=== PATIENT | male | born 1995 | race Hispanic/Latino ===

== ENCOUNTER 2021-01-05 21:19 | Emergency (ER) | payer OTHER ==
[2021-01-05 21:25] VITALS: BP 149/84
[2021-01-05] MEDS ORDERED: TETANUS,DIPH,PERTUSS(ACELL) VACCINE 0.5 ML SYRINGE IM ONE (21:29)
[2021-01-05] MEDS ORDERED: IBUPROFEN 600 MG TAB PO ONE (21:29)
[2021-01-05] MEDS ORDERED: LIDOCAINE-MPF (1%) 10 MG/1 ML VIAL 5 ML INFILTRATI ONE (21:29)
--- NOTE | 2021-01-06 00:08 | Emergency Department Report ---
ED Lower Extremity HPI - General Chief Complaint: Wound/Laceration Stated Complaint: CUT ON LEG Source: patient Mode of arrival: Ambulatory Limitations: No Limitations - History of Present Illness Initial Comments: Patient is a 25-year-old white male with no past medical history and is not up-to-date with his tetanus vaccinations presents to the ED with complaint of painful bleeding left lateral knee laceration wound after a chainsaw accidentally cut his left lateral knee about 4 hours ago while he was cutting trees. Patient states that he withdrew and turned off the chain so when he noticed that he had been cut. Patient states that the bleeding is well controlled at this time. Patient denies numbness and tingling or weakness of left leg, fall, nausea and vomiting, dizziness, syncope or hip pain. Patient states that his able to walk with no difficulty although the bleeding went on for a while. MD Complaint: knee injury (left lateral knee laceration) -: Sudden, hour(s) (4) Injury: Knee: Left (left lateral knee laceration) Type of Injury: puncture wound Place: home Severity: moderate Severity scale (0 -10): 6 Improves With: nothing Worsens With: weight bearing, movement, palpation Context: walking, other (chain-saw punctured lateral left knee) Associated Symptoms: able to partially bear weight. denies: snap/pop sensation, swelling, numbness, tingling, unable to bear weight, ambulatory - Related Data Previous Rx's Medication Instructions Recorded Last Taken Type Ibuprofen [Motrin] 800 mg PO Q8HR PRN #30 tablet 01/06/21 Unknown Rx cephALEXin [Keflex] 500 mg PO Q8HR #30 cap 01/06/21 Unknown Rx Allergies Allergy/AdvReac Type Severity Reaction Status Date / Time No Known Allergies Allergy Verified 01/05/21 21:35 ED Review of Systems ROS: Stated complaint: CUT ON LEG Other details as noted in HPI Constitutional: denies: chills, fever Eyes: denies: eye pain, eye discharge, vision change ENT: denies: ear pain, throat pain Respiratory: denies: cough, shortness of breath, wheezing Cardiovascular: denies: chest pain, palpitations Endocrine: no symptoms reported Gastrointestinal: denies: abdominal pain, nausea, diarrhea Genitourinary: denies: urgency, dysuria Musculoskeletal: arthralgia (lateral left knee pain due to a bleeding puncture wound). denies: back pain, joint swelling Skin: other (Bleeding painful left lateral knee laceration wound). denies: rash, lesions Neurological: denies: headache, weakness, paresthesias Psychiatric: denies: anxiety, depression Hematological/Lymphatic: denies: easy bleeding, easy bruising ED Past Medical Hx - Past Medical History Hx Asthma: Yes - Surgical History Past Surgical History?: No - Medications Home Medications: Home Medications Medication Instructions Recorded Confirmed Last Taken Type Ibuprofen [Motrin] 800 mg PO Q8HR PRN #30 tablet 01/06/21 Unknown Rx cephALEXin [Keflex] 500 mg PO Q8HR #30 cap 01/06/21 Unknown Rx ED Physical Exam - General Limitations: No Limitations General appearance: alert, in no apparent distress - Head Head exam: Present: atraumatic, normocephalic, normal inspection - Eye Eye exam: Present: normal appearance, PERRL, EOMI Pupils: Present: normal accommodation - ENT ENT exam: Present: normal exam, normal orophraynx, mucous membranes moist, TM's normal bilaterally, normal external ear exam - Neck Neck exam: Present: normal inspection, full ROM - Respiratory Respiratory exam: Present: normal lung sounds bilaterally. Absent: respiratory distress, wheezes, rales, rhonchi, chest wall tenderness, prolonged expiratory - Cardiovascular Cardiovascular Exam: Present: regular rate, normal rhythm, normal heart sounds. Absent: systolic murmur, diastolic murmur, rubs, gallop - GI/Abdominal GI/Abdominal exam: Present: soft, normal bowel sounds. Absent: distended, tenderness, rebound, hyperactive bowel sounds, hypoactive bowel sounds, organomegaly - Extremities Exam Extremities exam: Present: normal inspection, full ROM, tenderness (Palpable tenderness of left lateral knee due to a bleeding 4 cm laceration wound), normal capillary refill. Absent: pedal edema, joint swelling, calf tenderness - Back Exam Back exam: Present: normal inspection, full ROM. Absent: tenderness, CVA tenderness (R), muscle spasm, paraspinal tenderness, vertebral tenderness - Neurological Exam Neurological exam: Present: alert, oriented X3, CN II-XII intact, normal gait, reflexes normal - Psychiatric Psychiatric exam: Present: normal affect, normal mood - Skin Skin exam: Present: warm, dry, intact, normal color, other (Bleeding 4 cm laceration wound on left lateral knee with localized tenderness). Absent: rash ED Course Vital Signs 01/05/21 21:22 Temperature 98.9 F Pulse Rate 97 H Respiratory 17 Rate Blood Pressure 149/84 [Right] O2 Sat by Pulse 99 Oximetry - Laceration /Wound Repair Left Lateral Knee Wound Location: lower extremity (Lateral left knee laceration wound) Wound Length (cm): 4 Wound's Depth, Shape: superficial, linear Wound Explored: contaminated Irrigated w/ Saline (ccs): 200 Betadine Prep?: Yes Anesthesia: 1% Lidocaine Volume Anesthetic (ccs): 5 Wound Debrided: extensive Wound Repaired With: sutures Suture Size/Type: 3:0, proline Number of Sutures: 8 Layer Closure?: No Sterile Dressing Applied?: No Progress: The area was extensively cleaned and debrided with normal saline and Betadine solution. Local anesthetic lidocaine 1% solution was used to infiltrate around the wound. When anesthesia was fully achieved, the wound was approximated and sutured with Prolene 3-0 sutures. Patient tolerated the procedure well. The wound was then dressed appropriately and the patient will discharge home on pain medication and prophylactic antibiotics. Patient is advised return to the ED immediately if symptoms get worse. Patient was otherwise advised to follow-up with his primary care physician in 7 to 10 days for reevaluation. Patient was also advised return to the ED or to his primary care physician in 12 to 14 days for suture removal. ED Lower Extremity MDM - Medical Decision Making This is a 25-year-old white male with no past medical history and is not up-to-date with his tetanus vaccinations presents to the ED with complaint of painful bleeding left lateral knee laceration wound after a chainsaw accidentally cut his left lateral knee about 4 hours ago while he was cutting trees. Patient states that he withdrew and turned off the chain so when he noticed that he had been cut. Patient states that the bleeding is well controlled at this time. In the ED, patient is alert and oriented x3 and is not in any distress. Patient is hemodynamically stable. Patient was treated for pain in the ED and also given booster tetanus vaccination. The area was extensively cleaned and debrided with normal saline and Betadine solution. Local anesthetic lidocaine 1% solution was used to infiltrate around the wound. When anesthesia was fully achieved, the wound was approximated and sutured with Prolene 3-0 sutures. Patient tolerated the procedure well. The wound was then dressed appropriately and the patient will discharge home on pain medication and prophylactic antibiotics. Patient is advised return to the ED immediately if symptoms get worse. Patient was otherwise advised to follow-up with his primary care physician in 7 to 10 days for reevaluation. Patient was also advised return to the ED or to his primary care physician in 12 to 14 days for suture removal. - Differential Diagnosis Laceration; puncture wound; knee contusion Critical care attestation.: If time is entered above; I have spent that time in minutes in the direct care of this critically ill patient, excluding procedure time. ED Disposition Clinical Impression: Laceration of left knee without complication Qualifiers: Encounter type: initial encounter Qualified Code(s): S81.012A - Laceration without foreign body, left knee, initial encounter Disposition: HOME / SELF CARE / HOMELESS Is pt being admited?: No Does the pt Need Aspirin: No Condition: Stable Instructions: Laceration Care, Adult, [id number], Sutured Wound Care, [id number] Additional Instructions: Take medication with food, drink plenty of fluids and follow-up with your primary care physician in 7 to 10 days for reevaluation. Return to the ED immediately if symptoms get worse. Otherwise return to the ED or to your primary care physician in 12 to 14 days for suture removal. Prescriptions: cephALEXin [Keflex] 500 mg PO Q8HR #30 cap Ibuprofen [Motrin] 800 mg PO Q8HR PRN #30 tablet PRN Reason: Pain , Severe (7-10) Referrals: [facility] [Provider Group] - 7-10 days Time of Disposition: 00:09 Print Language: WOLOF
== END 2021-01-06 01:00 | disposition home or self-care (01) ==
LOC: ED 21:19
DX: S81.012A Laceration without foreign body, left knee, initial encounter (principal); X58.XXXA Exposure to other specified factors, initial encounter; Y93.89 Activity, other specified; Y92.89 Other specified places as the place of occurrence of the external cause; Y99.8 Other external cause status
CPT/HCPCS: 12032; 90471; 90715; 99282; J3490